=== PATIENT | female | born 1965 | race Caucasian/White ===

== ENCOUNTER 2019-04-22 11:57 | Emergency (ER) | payer BC ==
--- OUTSIDE RECORDS SUMMARY | 2019-04-22 12:16 | XMS REPORT | Continuity of Care Document ---
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 Onset: Social History Type Date Description Comments Sex Unknown ETOH Use Rarely consumes alcohol Tobacco Use Start: Unknown Patient has never smoked Recreational Drug Use Never Used Drugs Allergies, Adverse Reactions, Alerts Active Allergies Reaction Severity Comments Date Sulfa itching 06/28/2013 Symbicort ([place]) shortness of breath & anxiety 07/26/2013 Medications Active Medications SIG Qnty Indications Ordering Date Provider Advair Diskus inhale one dose by 60units J45.40 Grace 04/15/2019 mouth twice a day, OG Gomez 250-50mcg/Dose rinse mouth after Aerosol each use Mometasone Furoate use 1 to 2 sprays 51gm Grace 05/31/2018 in each nostril Uldrtammi, KEYING MACHINE OPERATOR-C 50mcg/Act once daily Suspension Spiriva Respimat Inhale 2 Puffs By 4units Grace 09/12/2016 Mouth Once Daily Uldrich, KEYING MACHINE OPERATOR-C 1.25mcg/Act Aerosol Cymbalta one in am and one Unknown 30mg Caps in pm DR Part Loratadine 1 tablet by mouth 30tabs Grace 10mg every day. Uldrich KEYING MACHINE OPERATOR-C Tablets Albuterol Sulfate #1 via nebulizer 150units Grace every 4-6 hours as Uldrich, KEYING MACHINE OPERATOR-C (2.5mg/3ML) 0.083% needed for cough, Nebulizer shortness of breath and wheezing Proair HFA two inhalations Unknown every 4 hours as 108(90Base) mcg/Act needed for cough, Aerosol wheezing or chest tightness Guaifenesin ER 1 by mouth every 12 Unknown hours 1200mg Tablets ER 12HR Xiidra Unknown 5% Solution Medications Administered in Office Medication SIG Qnty Indications Ordering Provider Date Injection Allergy Injection 04/15/2019 Injection Injection Allergy Injection 04/08/2019 Injection Injection Allergy Injection 03/31/2019 Injection Injection Allergy Injection 03/16/2019 Injection Injection Allergy Injection 03/11/2019 Injection Injection Allergy Injection 02/28/2019 Injection Injection Allergy Injection 02/11/2019 Injection Injection Allergy Injection 02/02/2019 Injection Injection Allergy Injection 01/28/2019 Injection Injection Allergy Injection 01/21/2019 Injection Injection Allergy Injection 01/10/2019 Injection Injection Allergy Injection 12/23/2018 Injection Injection Allergy Injection 12/17/2018 Injection Injection Allergy Injection 12/09/2018 Injection Injection Allergy Injection 11/26/2018 Injection Injection Allergy Injection 11/15/2018 Injection Injection Allergy Injection 11/08/2018 Injection Injection Allergy Injection 10/27/2018 Injection Injection Allergy Injection 10/20/2018 Injection Injection Allergy Injection 10/11/2018 Injection Injection Allergy Injection 09/29/2018 Injection Injection Allergy Injection 09/16/2018 Injection Injection Allergy Injection 09/03/2018 Injection Injection Allergy Injection 08/23/2018 Injection Injection Allergy Injection 08/12/2018 Injection Injection Allergy Injection 08/05/2018 Injection Injection Allergy Injection 07/22/2018 Injection Injection Allergy Injection 07/14/2018 Injection Injection Allergy Injection 07/07/2018 Injection Injection Allergy Injection 06/30/2018 Injection Immunizations CPT Code Status Date Vaccine Lot # [id number] Given Unknown Influenza Vaccine Vital Signs Date Vital Result Comment 04/15/2019 2:30pm Height 61 inches 5'1" Weight 140.00 lb Weight 63.504 kg Respiratory Rate 16 /min Heart Rate 83 /min O2 % BldC Oximetry 98 % BP Systolic 127 mmHg BP Diastolic 78 mmHg Asthma Control Test 22 Fractional Exhaled Nitric Oxide 23 BMI (Body Mass Index) 26.4 kg/m2 06/17/2018 11:51am Height 61 inches 5'1" Weight 148.00 lb Weight 67.133 kg Respiratory Rate 21 /min Heart Rate 83 /min O2 % BldC Oximetry 98 % BP Systolic 102 mmHg BP Diastolic 69 mmHg Asthma Control Test 6 BMI (Body Mass Index) 28.0 kg/m2 Results Description No Information Available Procedures Date Code Description Status 04/15/2019 79703 Injection Completed 04/15/2019 05209 Nitric Oxide Gas Determination Completed 04/15/2019 30829 Pre PFT Completed 04/08/2019 68534 Injection Completed 03/31/2019 43896 Injection Completed 03/16/2019 96002 Injection Completed 03/11/2019 69225 Injection Completed 02/28/2019 01086 Injection Completed 02/11/2019 29652 Injection Completed 02/02/2019 98462 Injection Completed 01/28/2019 41993 Injection Completed 01/21/2019 77291 Injection Completed 01/21/2019 50437 Extract 1-10 Completed 01/10/2019 42599 Injection Completed 12/23/2018 22429 Injection Completed 12/17/2018 63693 Injection Completed 12/09/2018 17479 Injection Completed 11/26/2018 36427 Injection Completed 11/15/2018 39102 Injection Completed 11/08/2018 24702 Injection Completed 10/27/2018 21018 Injection Completed 10/20/2018 49691 Injection Completed Medical Devices Description No Information Available Encounters Type Date Location Provider Dx Diagnosis Office Visit 04/15/2019 Misa Gomez, J45.40 Moderate persistent 2:20p [employer]ING MACHINE OPERATOR-[employer] asthma, uncomplicated J30.89 Other allergic rhinitis J30.2 Other seasonal allergic rhinitis J30.81 Allergic rhinitis due to animal (cat) (dog) hair and dander J30.1 Allergic rhinitis due to pollen Assessments Date Code Description Provider 04/15/2019 J45.40 Moderate persistent asthma, uncomplicated Grace Gomez , KEYING MACHINE OPERATOR-C 04/15/2019 J30.1 Allergic rhinitis due to pollen Allergy Injection 04/15/2019 J30.89 Other allergic rhinitis Gracejoselo Gomez, KEYING MACHINE OPERATOR-C 04/15/2019 J30.81 Allergic rhinitis due to animal (cat) Allergy Injection (dog) hair and dander 04/15/2019 J30.2 Other seasonal allergic rhinitis Gracejoselo Gomez, KEYING MACHINE OPERATOR-C 04/15/2019 J30.2 Other seasonal allergic rhinitis Allergy Injection 04/15/2019 J30.81 Allergic rhinitis due to animal (cat) Gracecristian Gomez, [facility] (dog) hair and dander 04/15/2019 J30.89 Other allergic rhinitis Allergy Injection 04/15/2019 J30.1 Allergic rhinitis due to pollen Gracecristian Gomez, KEYING MACHINE OPERATOR-C 04/08/2019 J30.1 Allergic rhinitis due to pollen Aba Hu M.D. 04/08/2019 J30.1 Allergic rhinitis due to pollen Allergy Injection 04/08/2019 J30.81 Allergic rhinitis due to animal (cat) Aba Hu M.D. (dog) hair and dander 04/08/2019 J30.81 Allergic rhinitis due to animal (cat) Allergy Injection (dog) hair and dander 04/08/2019 J30.2 Other seasonal allergic rhinitis Aba Hu M.D. 04/08/2019 J30.2 Other seasonal allergic rhinitis Allergy Injection 04/08/2019 J30.89 Other allergic rhinitis Aba Hu M.D. 04/08/2019 J30.89 Other allergic rhinitis Allergy Injection 03/31/2019 J30.1 Allergic rhinitis due to pollen Aba Hu M.D. 03/31/2019 J30.1 Allergic rhinitis due to pollen Allergy Injection 03/31/2019 J30.81 Allergic rhinitis due to animal (cat) Aba Hu M.D. (dog) hair and dander 03/31/2019 J30.81 Allergic rhinitis due to animal (cat) Allergy Injection (dog) hair and dander 03/31/2019 J30.2 Other seasonal allergic rhinitis Aba Hu M.D. 03/31/2019 J30.2 Other seasonal allergic rhinitis Allergy Injection 03/31/2019 J30.89 Other allergic rhinitis Aba Hu M.D. 03/31/2019 J30.89 Other allergic rhinitis Allergy Injection 03/16/2019 J30.1 Allergic rhinitis due to pollen Aba Hu M.D. 03/16/2019 J30.1 Allergic rhinitis due to pollen Allergy Injection 03/16/2019 J30.81 Allergic rhinitis due to animal (cat) Aba Hu M.D. (dog) hair and dander 03/16/2019 J30.81 Allergic rhinitis due to animal (cat) Allergy Injection (dog) hair and dander 03/16/2019 J30.2 Other seasonal allergic rhinitis Aba Hu M.D. 03/16/2019 J30.2 Other seasonal allergic rhinitis Allergy Injection 03/16/2019 J30.89 Other allergic rhinitis Aba Hu M.D. 03/16/2019 J30.89 Other allergic rhinitis Allergy Injection 03/11/2019 J30.1 Allergic rhinitis due to pollen Aba Hu M.D. 03/11/2019 J30.1 Allergic rhinitis due to pollen Allergy Injection 03/11/2019 J30.81 Allergic rhinitis due to animal (cat) Aba Hu M.D. (dog) hair and dander 03/11/2019 J30.81 Allergic rhinitis due to animal (cat) Allergy Injection (dog) hair and dander 03/11/2019 J30.2 Other seasonal allergic rhinitis Aba Hu M.D. 03/11/2019 J30.2 Other seasonal allergic rhinitis Allergy Injection 03/11/2019 J30.89 Other allergic rhinitis Aba Hu M.D. 03/11/2019 J30.89 Other allergic rhinitis Allergy Injection 02/28/2019 J30.1 Allergic rhinitis due to pollen Aba Hu M.D. 02/28/2019 J30.1 Allergic rhinitis due to pollen Allergy Injection 02/28/2019 J30.81 Allergic rhinitis due to animal (cat) Aba Hu M.D. (dog) hair and dander 02/28/2019 J30.81 Allergic rhinitis due to animal (cat) Allergy Injection (dog) hair and dander 02/28/2019 J30.2 Other seasonal allergic rhinitis Aba Hu M.D. 02/28/2019 J30.2 Other seasonal allergic rhinitis Allergy Injection 02/28/2019 J30.89 Other allergic rhinitis Aba Hu M.D. 02/28/2019 J30.89 Other allergic rhinitis Allergy Injection 02/11/2019 J30.1 Allergic rhinitis due to pollen Aba Hu M.D. 02/11/2019 J30.1 Allergic rhinitis due to pollen Allergy Injection 02/11/2019 J30.81 Allergic rhinitis due to animal (cat) Aba Hu M.D. (dog) hair and dander 02/11/2019 J30.81 Allergic rhinitis due to animal (cat) Allergy Injection (dog) hair and dander 02/11/2019 J30.2 Other seasonal allergic rhinitis Aba Hu M.D. 02/11/2019 J30.2 Other seasonal allergic rhinitis Allergy Injection 02/11/2019 J30.89 Other allergic rhinitis Aba Hu M.D. 02/11/2019 J30.89 Other allergic rhinitis Allergy Injection 02/02/2019 J30.1 Allergic rhinitis due to pollen Aba Hu M.D. 02/02/2019 J30.1 Allergic rhinitis due to pollen Allergy Injection 02/02/2019 J30.81 Allergic rhinitis due to animal (cat) Aba Hu M.D. (dog) hair and dander 02/02/2019 J30.81 Allergic rhinitis due to animal (cat) Allergy Injection (dog) hair and dander 02/02/2019 J30.2 Other seasonal allergic rhinitis Aba Hu M.D. 02/02/2019 J30.2 Other seasonal allergic rhinitis Allergy Injection 02/02/2019 J30.89 Other allergic rhinitis Aba Hu M.D. 02/02/2019 J30.89 Other allergic rhinitis Allergy Injection 01/28/2019 J30.1 Allergic rhinitis due to pollen Aba Hu M.D. 01/28/2019 J30.1 Allergic rhinitis due to pollen Allergy Injection 01/28/2019 J30.81 Allergic rhinitis due to animal (cat) Aba Hu M.D. (dog) hair and dander 01/28/2019 J30.81 Allergic rhinitis due to animal (cat) Allergy Injection (dog) hair and dander 01/28/2019 J30.2 Other seasonal allergic rhinitis Aba Hu M.D. 01/28/2019 J30.2 Other seasonal allergic rhinitis Allergy Injection 01/28/2019 J30.89 Other allergic rhinitis Aba Hu M.D. 01/28/2019 J30.89 Other allergic rhinitis Allergy Injection 01/21/2019 J30.1 Allergic rhinitis due to pollen Aba Hu M.D. 01/21/2019 J30.1 Allergic rhinitis due to pollen Allergy Injection 01/21/2019 J30.81 Allergic rhinitis due to animal (cat) Aba Hu M.D. (dog) hair and dander 01/21/2019 J30.81 Allergic rhinitis due to animal (cat) Allergy Injection (dog) hair and dander 01/21/2019 J30.2 Other seasonal allergic rhinitis Aba Hu M.D. 01/21/2019 J30.2 Other seasonal allergic rhinitis Allergy Injection 01/21/2019 J30.89 Other allergic rhinitis Aab Hu M.D. 01/21/2019 J30.89 Other allergic rhinitis Allergy Injection 01/10/2019 J30.1 Allergic rhinitis due to pollen Aba Hu M.D. 01/10/2019 J30.1 Allergic rhinitis due to pollen Allergy Injection 01/10/2019 J30.81 Allergic rhinitis due to animal (cat) Aba Hu M.D. (dog) hair and dander 01/10/2019 J30.81 Allergic rhinitis due to animal (cat) Allergy Injection (dog) hair and dander 01/10/2019 J30.2 Other seasonal allergic rhinitis Aba Hu M.D. 01/10/2019 J30.2 Other seasonal allergic rhinitis Allergy Injection 01/10/2019 J30.89 Other allergic rhinitis Aba Hu M.D. 01/10/2019 J30.89 Other allergic rhinitis Allergy Injection 12/23/2018 J30.1 Allergic rhinitis due to pollen Aba Hu M.D. 12/23/2018 J30.1 Allergic rhinitis due to pollen Allergy Injection 12/23/2018 J30.81 Allergic rhinitis due to animal (cat) Aba Hu M.D. (dog) hair and dander 12/23/2018 J30.81 Allergic rhinitis due to animal (cat) Allergy Injection (dog) hair and dander 12/23/2018 J30.2 Other seasonal allergic rhinitis Aba Hu M.D. 12/23/2018 J30.2 Other seasonal allergic rhinitis Allergy Injection 12/23/2018 J30.89 Other allergic rhinitis Aba Hu M.D. 12/23/2018 J30.89 Other allergic rhinitis Allergy Injection 12/17/2018 J30.81 Allergic rhinitis due to animal (cat) bAa Hu M.D. (dog) hair and dander 12/17/2018 J30.81 Allergic rhinitis due to animal (cat) Allergy Injection (dog) hair and dander 12/17/2018 J30.2 Other seasonal allergic rhinitis Aba Hu M.D. 12/17/2018 J30.2 Other seasonal allergic rhinitis Allergy Injection 12/17/2018 J30.89 Other allergic rhinitis Aba Hu M.D. 12/17/2018 J30.89 Other allergic rhinitis Allergy Injection 12/17/2018 J30.1 Allergic rhinitis due to pollen Aba Hu M.D. 12/17/2018 J30.1 Allergic rhinitis due to pollen Allergy Injection 12/09/2018 J30.1 Allergic rhinitis due to pollen Aba Hu M.D. 12/09/2018 J30.1 Allergic rhinitis due to pollen Allergy Injection 12/09/2018 J30.81 Allergic rhinitis due to animal (cat) Aba Hu M.D. (dog) hair and dander 12/09/2018 J30.81 Allergic rhinitis due to animal (cat) Allergy Injection (dog) hair and dander 12/09/2018 J30.2 Other seasonal allergic rhinitis Aba Hu M.D. 12/09/2018 J30.2 Other seasonal allergic rhinitis Allergy Injection 12/09/2018 J30.89 Other allergic rhinitis Aba Hu M.D. 12/09/2018 J30.89 Other allergic rhinitis Allergy Injection 11/26/2018 J30.1 Allergic rhinitis due to pollen Aba Hu M.D. 11/26/2018 J30.1 Allergic rhinitis due to pollen Allergy Injection 11/26/2018 J30.81 Allergic rhinitis due to animal (cat) Aba Hu M.D. (dog) hair and dander 11/26/2018 J30.81 Allergic rhinitis due to animal (cat) Allergy Injection (dog) hair and dander 11/26/2018 J30.2 Other seasonal allergic rhinitis Aba Hu M.D. 11/26/2018 J30.2 Other seasonal allergic rhinitis Allergy Injection 11/26/2018 J30.89 Other allergic rhinitis Aba Hu M.D. 11/26/2018 J30.89 Other allergic rhinitis Allergy Injection 11/15/2018 J30.1 Allergic rhinitis due to pollen Aba Hu M.D. 11/15/2018 J30.1 Allergic rhinitis due to pollen Allergy Injection 11/15/2018 J30.81 Allergic rhinitis due to animal (cat) Aba Hu M.D. (dog) hair and dander 11/15/2018 J30.81 Allergic rhinitis due to animal (cat) Allergy Injection (dog) hair and dander 11/15/2018 J30.2 Other seasonal allergic rhinitis Aba Hu M.D. 11/15/2018 J30.2 Other seasonal allergic rhinitis Allergy Injection 11/15/2018 J30.89 Other allergic rhinitis Aba Hu M.D. 11/15/2018 J30.89 Other allergic rhinitis Allergy Injection 11/08/2018 J30.1 Allergic rhinitis due to pollen Aba Hu M.D. 11/08/2018 J30.1 Allergic rhinitis due to pollen Allergy Injection 11/08/2018 J30.81 Allergic rhinitis due to animal (cat) Aba Hu M.D. (dog) hair and dander 11/08/2018 J30.81 Allergic rhinitis due to animal (cat) Allergy Injection (dog) hair and dander 11/08/2018 J30.2 Other seasonal allergic rhinitis Aba Hu M.D. 11/08/2018 J30.2 Other seasonal allergic rhinitis Allergy Injection 11/08/2018 J30.89 Other allergic rhinitis Aba Hu M.D. 11/08/2018 J30.89 Other allergic rhinitis Allergy Injection 10/27/2018 J30.1 Allergic rhinitis due to pollen Aba Hu M.D. 10/27/2018 J30.1 Allergic rhinitis due to pollen Allergy Injection 10/27/2018 J30.81 Allergic rhinitis due to animal (cat) Aba Hu M.D. (dog) hair and dander 10/27/2018 J30.81 Allergic rhinitis due to animal (cat) Allergy Injection (dog) hair and dander 10/27/2018 J30.2 Other seasonal allergic rhinitis Aba Hu M.D. 10/27/2018 J30.2 Other seasonal allergic rhinitis Allergy Injection 10/27/2018 J30.89 Other allergic rhinitis Aba Hu M.D. 10/27/2018 J30.89 Other allergic rhinitis Allergy Injection 10/20/2018 J30.1 Allergic rhinitis due to pollen Aba Hu M.D. 10/20/2018 J30.1 Allergic rhinitis due to pollen Allergy Injection 10/20/2018 J30.81 Allergic rhinitis due to animal (cat) Aba Hu M.D. (dog) hair and dander 10/20/2018 J30.81 Allergic rhinitis due to animal (cat) Allergy Injection (dog) hair and dander 10/20/2018 J30.2 Other seasonal allergic rhinitis Aba Hu M.D. 10/20/2018 J30.2 Other seasonal allergic rhinitis Allergy Injection 10/20/2018 J30.89 Other allergic rhinitis Aba Hu M.D. 10/20/2018 J30.89 Other allergic rhinitis Allergy Injection Plan of Treatment 04/15/2019 - Grace Gomez, JEROMY-CJ45.40 Moderate persistent asthma, gfyqhbcjpryfiX38.89 Other allergic odyvjakrB27.2 Other seasonal allergic lmeoajmkR53.81 Allergic rhinitis due to animal (cat) (dog) hair and zgpwisS03.1 Allergic rhinitis due to pollenNew Medication:Advair Diskus 250-50 mcg/ DoseRecommendations:Continue all medications as prescribed.Refrain from wearing perfumes/scented colognes while visitingour office. continue: Advair 250- 50 mcq 1 inhalation in am&pm - rinse mouth after use Proair 2 puffs every 4 hours as needed for cough, wheeze, or shortness of breath Loratadine 10mg daily Nasonex 1-2 sprays each nostril daily Spiriva 2 inhalations in the am Functional Status Description No Information Available Mental Status Description No Information Available Referrals Description No Information Available
--- OUTSIDE RECORDS SUMMARY | 2019-04-22 12:16 | XMS REPORT | Continuity of Care Document ---
:1965 External Reference #:[id number] Author Name MAINE Butler (transmitted by agent of provider Margi Moreno) Address [address], [place] [address] Care Team Providers Name Role Phone Florence Painter MD - Internal Care Team Information Consumer Studies Professor Medicine Problems Active Problems Provider Date Congenital spondylolysis of lumbosacral Rikki Palafox M.D. Onset: 2012 region Acquired spondylolisthesis Rikki Palafox M.D. Onset: 04/15/2013 Sciatica Rikki Palafox M.D. Onset: 04/15/2013 Current tear of medial cartilage AND/OR Aba Dasilva M.D. Onset: 2017 meniscus of knee Enthesopathy of knee Aba Dasilva M.D. Onset: 09/09/2017 Iliotibial band friction syndrome Aba Dasilva M.D. Onset: 09/09/2017 Derangement of knee Aba Dasilva M.D. Onset: 11/11/2017 Social History Type Date Description Comments Sex Unknown Tobacco Use Start: Unknown Never Smoked Cigarettes ETOH Use Denies alcohol use Recreational Drug Use Denies Drug Use Tobacco Use Start: Unknown Patient has never smoked Smoking Status Reviewed: 03/24/19 Patient has never smoked Exercise Type/Frequency Exercises regularly 3-5 days per week Allergies, Adverse Reactions, Alerts Active Allergies Reaction Severity Comments Date Sulfa Antibiotics 04/15/2013 Symbicort 07/13/2018 Medications Active Medications SIG Qnty Indications Ordering Provider Date CBD Oil 20MG two - three times Unknown per day Turmeric Curcumin two to three times Unknown 900MG per day Digestive Enzyme taken at mealtimes Unknown Chewable Tablet Probiotic Powder bid Unknown Supplement Garden Of Life Licorice Plus Tablets two tablets by Unknown mouth daily Vitamin C 1,000MG three capsules Unknown daily Cla Capsule one capsules tid Unknown Ubiquinol three capsules by Unknown 100mg mouth every day Capsules Guaifenesin ER take by mouth twice Unknown 1200mg daily. Tablets ER 12HR Somaderm gel twice daily Unknown five and a half days per week. Multivit Drink 1 by mouth every Unknown day Nasal Steroid two sprays to each Unknown nostril daily Calcium with vitamin D two Unknown capsules twice daily Advair one puff twice Unknown daily Spiriva Handihaler 1 unit two puffs Unknown inhalation daily 18mcg Capsules Livega's Joselito 1/4 tsp powder once Unknown daily MCT Oil once daily Unknown Oil Loratadine 1 by mouth every Unknown 10mg Tablets day Glucosamine Move On Joint Unknown Complex -three tablets daily Duloxetine HCL 1 by mouth twice Unknown 30mg daily Caps DR Andino Immunizations Description No Information Available Vital Signs Date Vital Result Comment 03/24/2019 11:16am Height 61 inches 5'1" Weight 141.00 lb Heart Rate 80 /min BP Systolic 115 mmHg BP Diastolic 76 mmHg Body Temperature 98.5 F O2 % BldC Oximetry 95 % BMI (Body Mass Index) 26.6 kg/m2 12/13/2018 10:36am Height 61 inches 5'1" Weight 141.50 lb Heart Rate 73 /min BP Systolic 124 mmHg BP Diastolic 82 mmHg Body Temperature 98.1 F O2 % BldC Oximetry 96 % BMI (Body Mass Index) 26.7 kg/m2 Results Description No Information Available Procedures Date Code Description Status 02/04/2019 46223372 Mammogram Completed 05/28/2018 [id number] Colonoscopy Completed 07/19/2017 [id number] Mammogram Completed Medical Devices Description No Information Available Encounters Type Date Location Provider Dx Diagnosis Office Visit 12/13/2018 [facility] Beba N95.8 Other specified 10:30a [facility] menopausal and perimenopausal disorders R53.83 Other fatigue M13.0 Polyarthritis, unspecified Office Visit 10/11/2018 [facility] Beba Nieto, N95.9 Unspecified 11:00a [facility] [place] menopausal and Clinic of perimenopausal Manager Appointment disorder R53.83 Other fatigue M13.0 Polyarthritis, unspecified Assessments Date Code Description Provider 03/24/2019 N95.9 Unspecified menopausal and perimenopausal MAINE Butler disorder 03/24/2019 M13.0 Polyarthritis, unspecified MAINE Butler 03/24/2019 R07.9 Chest pain, unspecified MAINE Butler 12/13/2018 N95.8 Other specified menopausal and perimenopausal MAINE Butler disorders 12/13/2018 R53.83 Other fatigue MAINE Butler 12/13/2018 M13.0 Polyarthritis, unspecified [place] 10/11/2018 N95.9 Unspecified menopausal and perimenopausal MAINE Butler disorder 10/11/2018 R53.83 Other fatigue Beba Nieto, MAINE 10/11/2018 M13.0 Polyarthritis, unspecified MAINE Butler Plan of Treatment Future Appointment(s):06/23/2019 11:00 am - MAINE Butler at [facility]03/24/2019 - Beba Nieto, PAN95.9 Unspecified menopausal and perimenopausal disorderFollow up:3 monthsRecommendations: continue your supplements. we discussed your GI tract. if symptoms persist, please contact me. consider aloe vera juice 2 ounces daily and DGL chewables if heart burn magnesium for the constipation increased fiber Jaleel Russ, get his weekly newsletter/ one true thing he wrote W[employer] for Happiness (I think this is the title) also Wayne Palomino did a recent interview with Jaleel Russ, Candelario's podcast is called [facility] mental illness guru Dr. Derek Espitia listen to [employer] podcast/ with Dr. Tylor Krishnan interviewing Amen book coming out The End of mental illness in the fcaljcC85.0 Polyarthritis, unspecifiedRecommendations:your pain is under good control you are decreasing your sugar and this is great.R07.9 Chest pain, unspecifiedRecommendations:see Dr. Peterson to discuss chest pain it may be costochondral irritation use heat i heard a mild murmur today Functional Status Description No Information Available Mental Status Description No Information Available Referrals Description No Information Available
[2019-04-22 12:42] VITALS: BP 127/79
--- NOTE | 2019-04-22 12:44 | UC ---
Throat Pain/Nasal Charlie HPI - HPI Summary HPI Summary: 54 yo female presents with flu-like symptoms. She tells me that over the last 3 days she has had sinus pain/pressure/congestion, sore throat, and intermittently productive cough with green sputum. Also having fatigue and body aches. She has a hx of asthma and has needed to use her inhalers more often. She has felt feverish, but has not taken her temperature. She has taken mucinex with good relief. She denies SOB, chest pain, rash, abdominal pain, n/v. - History of Current Complaint Chief Complaint: UCRespiratory Stated Complaint: SORE THROAT, COUGH Time Seen by Provider: 04/22/19 12:44 Hx Obtained From: Patient Onset/Duration: Gradual Onset Severity: Severe Pain Intensity: 10 Pain Scale Used: 0-10 Numeric - Allergies/Home Medications Allergies/Adverse Reactions: Allergies Allergy/AdvReac Type Severity Reaction Status Date / Time Sulfa (Sulfonamide Allergy rash,itchin Verified 04/22/19 12:42 Antibiotics) g latex Allergy Severe very Uncoded 04/22/19 12:42 itching and very red symbicort Allergy Severe heart Uncoded 04/22/19 12:42 racing, anxiety sob PMH/Surg Hx/FS Hx/Imm Hx Respiratory History: Asthma Psychological History: Anxiety, Depression - Surgical History Surgical History: Yes Surgery Procedure, Year, and Place: 05/2017 - Rt KNEE. BUNION BOTH FOOT. HAMMER TOES BOTH FEET. RT SHOULDER OPEN RESECTION. RT SHOULDER ARTHRO. TONISLS. WISDOM TEETH. TUBES IN EARS/REMOVED - Family History Known Family History: Positive: Other - COLITIS, COLON CA - Social History Lives: With Family Alcohol Use: Rare Substance Use Type: None Smoking Status (MU): Never Smoked Tobacco Review of Systems All Other Systems Reviewed And Are Negative: No Constitutional: Positive: Fatigue, Other - Body aches Skin: Positive: Negative Eyes: Positive: Negative ENT: Positive: Nasal Discharge, Sinus Congestion, Sinus Pain/Tenderness Respiratory: Positive: Cough Cardiovascular: Positive: Negative Gastrointestinal: Positive: Negative Neurological: Positive: Negative Psychological: Positive: Negative Physical Exam - Summary Physical Exam Summary: GENERAL: NAD. WDWN. No pain distress. SKIN: No rashes, sores, lesions, or open wounds. HEENT: Head: AT/NC Eyes: EOM intact. Conjunctiva clear without inflammation or discharge. Ears: Hearing grossly normal. TMs intact, no bulging, erythema, or edema. Nose: Nasal mucosa mildly swollen and erythematous with yellow/ clear discharge. TTP maxillary and frontal sinus. Positive post nasal drip Throat: Posterior oropharynx without exudates, erythema, or tonsillar enlargement. Uvula midline. NECK: Supple. Nontender. No lymphadenopathy. CHEST: Mild wheezing throughout. No crackles. No accessory muscle use. Breathing comfortably and in no distress. CV: RRR. Pulses intact. NEURO: Alert. PSYCH: Age appropriate behavior. Triage Information Reviewed: Yes Vital Signs: Initial Vital Signs Temp 100.6 F 04/22/19 12:37 Pulse 98 04/22/19 12:37 Resp 18 04/22/19 12:37 BP 127/79 04/22/19 12:37 Pulse Ox 98 04/22/19 12:37 Laboratory Tests 04/22/19 04/22/19 13:02 13:08 Influenza A (Rapid) Negative Influenza B (Rapid) Negative Group A Strep Rapid Negative Vital Signs Reviewed: Yes Throat Pain/Nasal Course/Dx - Course Course Of Treatment: Pt declined CXR today. Suspect URI/sinusitis. - Differential Dx/Diagnosis Provider Diagnosis: URI (upper respiratory infection) Discharge ED - Sign-Out/Discharge Documenting (check all that apply): Patient Departure All imaging exams completed and their final reports reviewed: No Studies - Discharge Plan Condition: Stable Disposition: HOME Prescriptions: Azithromycin TAB* [Zithromax TAB (Z-CHANTE) 250 mg #6 tabs] 2 tab PO .TODAY, THEN 1 DAILY #1 chante Patient Education Materials: Sinusitis (ED) Referrals: Florence Painter MD [Primary Care Provider] - Additional Instructions: If you develop a fever, shortness of breath, chest pain, new or worsening symptoms - please call your PCP or go to the ED immediately. Your strep and flu test were negative today. If your symptoms do not improve - I think a chest x-ray would be important to obtain - Billing Disposition and Condition Condition: STABLE Disposition: Home
[2019-04-22 13:19] LABS: Influenza A Molecular NEGATIVE (Negative); Influenza B Molecular NEGATIVE (Negative)
== END 2019-04-22 13:30 | disposition home or self-care (01) ==
LOC: UCEAST 11:57
DX: J06.9 Acute upper respiratory infection, unspecified (principal); J45.909 Unspecified asthma, uncomplicated; Z88.2 Allergy status to sulfonamides; Z91.040 Latex allergy status; Z88.8 Allergy status to other drugs, medicaments and biological substances
CPT/HCPCS: 87651; 99212; G0463